=== PATIENT | female | born 1990 | race Asian ===

== ENCOUNTER 2025-04-11 23:04 | Emergency (ER) | payer OTHER ==
[~2025-04-11] VITALS: Ht 157.5 cm; Wt 50.0 kg
[2025-04-11 23:39] VITALS: TEMP 36.6; O2SAT 99
[2025-04-12] MEDS ORDERED: IBUP-1455 MT (01:40)
[2025-04-12 01:58] VITALS: BP 112/82; PULSE 74; RESP 14; O2SAT 100
== END 2025-04-12 01:59 | disposition home or self-care (01) ==
LOC: ER 23:04
DX: S20.219A Contusion of unspecified front wall of thorax, initial encounter (principal); S09.90XA Unspecified injury of head, initial encounter; V49.9XXA Car occupant (driver) (passenger) injured in unspecified traffic accident, initial encounter; Y93.89 Activity, other specified; Y92.89 Other specified places as the place of occurrence of the external cause; Y99.8 Other external cause status
CPT/HCPCS: 71045; 99283